=== PATIENT | female | born 1995 | race Two or more races ===

== ENCOUNTER 2020-04-28 03:14 | Emergency (ER) | payer SELFPAY ==
[~2020-04-28] VITALS: Ht 162.6 cm; Wt 57.8 kg
[2020-04-28 03:41] LABS: BILIRUBIN,URINE NEGATIVE (NEG); CLARITY,URINE CLEAR; COLOR,URINE YELLOW; NITRITE,URINE NEGATIVE (NEG); PH,URINE 6.5 (<5.0-8.0); PROTEIN,URINE NEGATIVE (NEG-TRACE)
[2020-04-28 03:48] LABS: BACTERIA,URINE FEW /HPF (0-FEW); RBC,URINE RARE /HPF (0-2)
[2020-04-28 04:08] LABS: BASO % 1 % (0-3); EOS # 0.1 x10^3/uL (0.0-0.7); EOS % 2 % (0-3); HEMATOCRIT 38.7 % (36.0-47.0); HEMOGLOBIN 13.5 g/dL (12.0-15.5); LYMPH # 2.1 x10^3/uL (1.0-4.8); LYMPH % 28 % (24-48); MEAN CORPUSCULAR HEMOGLOBIN 30 pg (25-35); MEAN CORPUSCULAR HGB CONC 35 g/dL (31-37); MEAN CORPUSCULAR VOLUME 86 fL (79-100); MONO # 0.6 x10^3/uL (0.0-1.1); MONO % 8 % (0-9); NEUT # 4.8 x10^3/uL (1.8-7.7); NEUT % 63 % (31-73); PLATELET COUNT 171 x10^3/uL (140-400); RED BLOOD COUNT 4.52 x10^6/uL (3.50-5.40); RED CELL DISTRIBUTION WIDTH 12.9 % (11.5-14.5); WHITE BLOOD COUNT 7.7 x10^3/uL (4.0-11.0)
[2020-04-28] MEDS: cefTRIAXone IV Push 1 GM VIAL. IVP ONE (04:16)
[2020-04-28 04:17] LABS: CALCIUM 8.9 mg/dL (8.5-10.1); CREATININE 0.7 mg/dL (0.6-1.0); POTASSIUM 3.4 mmol/L (3.5-5.1)
[2020-04-28 04:22] LABS: ALBUMIN 3.6 g/dL (3.4-5.0); ALBUMIN/GLOBULIN RATIO 1.1 (1.0-1.7); TOTAL BILIRUBIN 0.5 mg/dL (0.2-1.0); TOTAL PROTEIN 6.9 g/dL (6.4-8.2)
--- NOTE | 2020-04-28 05:04 | PHYS DOC ---
Past Medical History Past Medical History: No Pertinent History (ANDREA OTERO DO) Past Surgical History: No Surgical History (ANDREA OTERO DO) Smoking Status: Never Smoker Alcohol Use: None (ANDREA OTERO DO) General Adult EDM: Chief Complaint: ABDOMINAL PAIN IN HPI: HPI: Patient is a 24 year old female who presented to ER for evaluation of epigastric abdominal pain that radiated to her back started about 8 hours ago. Patient says she is ABOUT 2- 3 weeks . This is her second , denies any pelvic pain, no vaginal bleeding or discharge. Patient denies any cough or fever. Patient denies any chest pain, no trouble breathing. Patient denies being exposed to anybody who tested positive for COVID-19. Patient denies any lower abdominal pain. Patient denies any pain with urination, denies any frequency with urination (ANDREA OTERO DO) Review of Systems: Review of Systems: Constitutional: Denies fever or chills. [] Eyes: Denies change in visual acuity. [] HENT: Denies nasal congestion or sore throat. [] Respiratory: Denies cough or shortness of breath. [] Cardiovascular: Denies chest pain or edema. [] GI: Positive for abdominal pain, no nausea vomiting, no diarrhea. : Denies dysuria. [] Musculoskeletal: Denies back pain or joint pain. [] Integument: Denies rash. [] Neurologic: Denies headache, focal weakness or sensory changes. [] Endocrine: Denies polyuria or polydipsia. [] Lymphatic: Denies swollen glands. [] Psychiatric: Denies depression or anxiety. [] (ANDREA OTERO DO) Heart Score: Risk Factors: Risk Factors: DM, Current or recent (<one month) smoker, HTN, HLP, family history of CAD, obesity. Risk Scores: Score 0 - 3: 2.5% MACE over next 6 weeks - Discharge Home Score 4 - 6: 20.3% MACE over next 6 weeks - Admit for Clinical Observation Score 7 - 10: 72.7% MACE over next 6 weeks - Early Invasive Strategies (ANDREA OTERO DO) Current Medications: Current Medications Medications (Trade) Dose Ordered Sig/Cristi Start Time Stop Time Status Last Admin Dose Admin Ceftriaxone Sodium (Rocephin) 1 gm 1X ONCE 04/28/20 04:15 04/28/20 04:16 UNV 04/28/20 04:16 1 GM Famotidine (Pepcid Vial) 20 mg 1X ONCE 04/28/20 05:00 04/28/20 05:01 UNV (ANDREA OTERO DO) Physical Exam: PE: Constitutional: Well developed, well nourished, no acute distress, non-toxic appearance. [] HENT: Normocephalic, atraumatic, bilateral external ears normal, oropharynx moist, no oral exudates, nose normal. [] Eyes: PERRLA, EOMI, conjunctiva normal, no discharge. [] Neck: Normal range of motion, no tenderness, supple, no stridor. [] Cardiovascular:Heart rate regular rhythm, no murmur [] Lungs & Thorax: Bilateral breath sounds clear to auscultation [] Abdomen: Bowel sounds normal, soft, There is tenderness to palpation in RUQ, EPIGASTRIC AREA, no masses, no pulsatile masses. [] Skin: Warm, dry, no erythema, no rash. [] Back: No tenderness, no CVA tenderness. [] Extremities: No tenderness, no cyanosis, no clubbing, ROM intact, no edema. [] Neurologic: Alert and oriented X 3, normal motor function, normal sensory function, no focal deficits noted. [] Psychologic: Affect normal, judgement normal, mood normal. [] (ANDREA OTERO DO) Current Patient Data: Labs: Laboratory Tests Test 04/28/20 03:25 04/28/20 03:29 04/28/20 04:00 Urine Collection Type Unknown Urine Color Yellow Urine Clarity Clear Urine pH 6.5 (<5.0-8.0) Urine Specific [place] <=1.005 (1.000-1.030) Urine Protein Negative mg/dL (NEG-TRACE) Urine Glucose (UA) Negative mg/dL (NEG) Urine Ketones (Stick) Negative mg/dL (NEG) Urine Blood Negative (NEG) Urine Nitrite Negative (NEG) Urine Bilirubin Negative (NEG) Urine Urobilinogen Dipstick 1.0 mg/dL (0.2 mg/dL) Urine Leukocyte Esterase Moderate (NEG) Urine RBC Rare /HPF (0-2) Urine WBC 11-20 /HPF (0-4) Urine Squamous Epithelial Cells Mod /LPF Urine Bacteria Few /HPF (0-FEW) POC Urine HCG, Qualitative Hcg positive (Negative) White Blood Count 7.7 x10^3/uL (4.0-11.0) Red Blood Count 4.52 x10^6/uL (3.50-5.40) Hemoglobin 13.5 g/dL (12.0-15.5) Hematocrit 38.7 % (36.0-47.0) Mean Corpuscular Volume 86 fL (79-100) Mean Corpuscular Hemoglobin 30 pg (25-35) Mean Corpuscular Hemoglobin Concent 35 g/dL (31-37) Red Cell Distribution Width 12.9 % (11.5-14.5) Platelet Count 171 x10^3/uL (140-400) Neutrophils (%) (Auto) 63 % (31-73) Lymphocytes (%) (Auto) 28 % (24-48) Monocytes (%) (Auto) 8 % (0-9) Eosinophils (%) (Auto) 2 % (0-3) Basophils (%) (Auto) 1 % (0-3) Neutrophils # (Auto) 4.8 x10^3/uL (1.8-7.7) Lymphocytes # (Auto) 2.1 x10^3/uL (1.0-4.8) Monocytes # (Auto) 0.6 x10^3/uL (0.0-1.1) Eosinophils # (Auto) 0.1 x10^3/uL (0.0-0.7) Basophils # (Auto) 0.0 x10^3/uL (0.0-0.2) Maternal Serum HCG Beta Subunit 840 mIU/mL (0-5) H Sodium Level 140 mmol/L (136-145) Potassium Level 3.4 mmol/L (3.5-5.1) L Chloride Level 106 mmol/L (98-107) Carbon Dioxide Level 24 mmol/L (21-32) Anion Gap 10 (6-14) Blood Urea Nitrogen 10 mg/dL (7-20) Creatinine 0.7 mg/dL (0.6-1.0) Estimated GFR (Cockcroft-Gault) 102.0 BUN/Creatinine Ratio 14 (6-20) Glucose Level 107 mg/dL (70-99) H Calcium Level 8.9 mg/dL (8.5-10.1) Total Bilirubin 0.5 mg/dL (0.2-1.0) Aspartate Amino Transferase (AST) 19 U/L (15-37) Alanine Aminotransferase (ALT) 26 U/L (14-59) Alkaline Phosphatase 59 U/L (46-116) Total Protein 6.9 g/dL (6.4-8.2) Albumin 3.6 g/dL (3.4-5.0) Albumin/Globulin Ratio 1.1 (1.0-1.7) Laboratory Tests 04/28/20 04:00 Laboratory Tests 04/28/20 04:00 Vital Signs: Vital Signs Date Time Temp Pulse Resp B/P (MAP) Pulse Ox O2 Delivery O2 Flow Rate FiO2 04/28/20 03:45 98.2 76 20 112/63 (79) 99 Room Air 98.2 (ANDREA OTERO DO) EKG: EKG: [] (ANDREA OTERO DO) Radiology/Procedures: Radiology/Procedures: [] (ANDREA OTERO DO) Radiology/Procedures: Right upper quadrant ultrasound dated 04/28/2020. No comparison available. CLINICAL INDICATION: Abdominal pain. FINDINGS: Liver is homogeneous in echogenicity. No focal hepatic mass. Intrahepatic and extra hepatic biliary tree normal in caliber. Common bile duct measures 5 mm. There is some echogenic material in the gallbladder lumen consistent with sludge. No wall thickening or pericholecystic fluid. No shadowing stones. Right kidney measures 9 cm in length without hydronephrosis. Left kidney was not imaged. Limited visualized portions of pancreas aorta and IVC unremarkable. No significant ascites. IMPRESSION: 1. No acute sonographic abnormality. 2. Sludge-filled gallbladder. First trimester OB ultrasound dated 04/28/2020. No comparison available. CLINICAL INDICATION: Abdominal pain. FINDINGS: Uterus measures 9.3 x 6.4 x 5.5 cm and is retroverted. No gestational sac or pole within the endometrial canal. Endometrium appears somewhat thickened and measuring up to 2.3 cm. Right ovary measures 3.7 x 3.2 x 3.1 cm. Left ovary measures 2.0 x 1.7 x 1.4 cm. There is a simple appearing cyst at the right ovary measuring up to 2.8 cm. Normal color Doppler flow to both ovaries. Small amount of free fluid. IMPRESSION: 1. No evidence of gestational sac or pole at this time. This could be related to very early IUP or demise. Correlate clinically. 2. Small amount of free fluid, nonspecific. No apparent adnexal mass. 3. Small right ovarian cyst. (ARTHUR PERKINS MD) Course & Med Decision Making: Course & Med Decision Making Pertinent Labs and Imaging studies reviewed. (See chart for details) Patient is a 24-year-old female who is , presented with epigastric abdominal pain, no pelvic pain, no vaginal bleeding. Ultrasound of her abdomen and pelvis pending at this time, endorsed care to Dr. Perkins at shift change. (ANDREA OTERO DO) Course & Med Decision Making Accepted care of patient at shift change, she was pending ultrasound imaging. Patient states her stomach pain is feeling better after the famotidine. Discussed with patient via interpretation line that we will treat her urinary tract infection as well as gastritis, educated her about what foods to avoid. (ARTHUR PERKINS MD) Dragon Disclaimer: Dragon Disclaimer: This electronic medical record was generated, in whole or in part, using a voice recognition dictation system. (ANDREA OTERO DO) Departure Departure Impression: Primary Impression: Abdominal pain during Additional Impression: Urinary tract infection Disposition: 01 DC HOME SELF CARE/HOMELESS Condition: STABLE Referrals: NO PCP (PCP) Patient Instructions: Diet for Gastroesophageal Reflux Disease, Adult, [id number] Scripts Famotidine (FAMOTIDINE) 20 Mg Tablet 20 MG PO HS for gastritis for 10 Days, #10 TAB Prov: ARTHUR PERKINS MD 04/28/20 Cephalexin (CEPHALEXIN) 500 Mg Capsule 1 CAP PO BID for antibiotico for 5 Days, #10 CAP Prov: ARTHUR PERKINS MD 04/28/20 ANDREA OTERO DO Apr 28, 2020 05:03 ARTHUR PERKINS MD Apr 28, 2020 06:50
[2020-04-28] MEDS: FAMOTIDINE 20 MG/2 ML VIAL IVP ONE (05:13)
--- NOTE | 2020-04-28 06:13 | RAD ---
Right upper quadrant ultrasound dated 04/28/2020. No comparison available. CLINICAL INDICATION: Abdominal pain. FINDINGS: Liver is homogeneous in echogenicity. No focal hepatic mass. Intrahepatic and extra hepatic biliary t ree normal in caliber. Common bile duct measures 5 mm. There is some echogenic material in the gallbladder lumen consistent with sludge. No wall thickening or pericholecystic fluid. No shadowing stones. Right kidney measures 9 cm in length without hydronephrosis. Left kidney was not imaged. Limited visualized portions of pancreas aorta and IVC unremarkable. No significant ascites. IMPRESSION: 1. No acute sonographic abnormality. 2. Sludge-filled gallbladder. Electronically signed by: Henry Sun MD (04/28/2020 6:11 AM) [facility]
--- NOTE | 2020-04-28 06:19 | RAD ---
First trimester OB ultrasound dated 04/28/2020. No comparison available. CLINICAL INDICATION: Abdominal pain. FINDINGS: Uterus measures 9.3 x 6.4 x 5.5 cm and is retroverted. No gestational sac or pole within the en dometrial canal. Endometrium appears somewhat thickened and measuring up to 2.3 cm. Right ovary measures 3.7 x 3.2 x 3.1 cm. Left ovary measures 2.0 x 1.7 x 1.4 cm. There is a simple ap pearing cyst at the right ovary measuring up to 2.8 cm. Normal color Doppler flow to both ovaries. Sm all amount of free fluid. IMPRESSION: 1. No evidence of gestational sac or pole at this time. This could be related to very early IUP or demise. Correlate clinically. 2. Small amount of free fluid, nonspecific. No apparent adnexal mass. 3. Small right ovarian cyst. Electronically signed by: Henry Snu MD (04/28/2020 6:17 AM) [facility]
[2020-04-28 06:43] VITALS: BP 110/65
[2020-04-28] MEDS ORDERED: CEPH500C PO (06:49)
[2020-04-28] MEDS ORDERED: FAMO20TA5 PO (06:49)
== END 2020-04-28 07:00 | disposition home or self-care (01) ==
LOC: ER 03:14
DX: O23.41 Unspecified infection of urinary tract in pregnancy, first trimester (principal); R10.13 Epigastric pain; Z3A.01 Less than 8 weeks gestation of pregnancy
CPT/HCPCS: 36415; 76705; 76801; 80053; 81001; 81025; 83690; 84702; 85025; 86900; 86901; 87086; 96374; 96375; 99285; J0696; J3490

== ENCOUNTER 2020-06-03 15:34 | Emergency (ER) | payer SELFPAY ==
[~2020-06-03] VITALS: Ht 152.4 cm; Wt 56.8 kg
[~2020-06-03 15:34] MED LIST: CEPH500C PO; FAMO20TA5 PO
[2020-06-03 16:35] LABS: BILIRUBIN,URINE NEGATIVE (NEG); CLARITY,URINE CLEAR; COLOR,URINE YELLOW; NITRITE,URINE NEGATIVE (NEG); PROTEIN,URINE NEGATIVE (NEG-TRACE); UROBILINOGEN,URINE 0.2 mg/dL (0.2 mg/dL)
[2020-06-03 16:40] LABS: BACTERIA,URINE FEW /HPF (0-FEW)
[2020-06-03 16:41] LABS: RBC,URINE 0 /HPF (0-2)
[2020-06-03 16:57] LABS: BASO % 0 % (0-3); EOS # 0.1 x10^3/uL (0.0-0.7); EOS % 1 % (0-3); HEMATOCRIT 40.7 % (36.0-47.0); HEMOGLOBIN 13.9 g/dL (12.0-15.5); LYMPH # 2.1 x10^3/uL (1.0-4.8); LYMPH % 23 % (24-48); MEAN CORPUSCULAR HEMOGLOBIN 30 pg (25-35); MEAN CORPUSCULAR HGB CONC 34 g/dL (31-37); MEAN CORPUSCULAR VOLUME 86 fL (79-100); MONO # 0.5 x10^3/uL (0.0-1.1); MONO % 5 % (0-9); NEUT # 6.4 x10^3/uL (1.8-7.7); NEUT % 71 % (31-73); PLATELET COUNT 177 x10^3/uL (140-400); RED BLOOD COUNT 4.73 x10^6/uL (3.50-5.40); RED CELL DISTRIBUTION WIDTH 12.6 % (11.5-14.5); WHITE BLOOD COUNT 9.1 x10^3/uL (4.0-11.0)
[2020-06-03 17:03] LABS: CALCIUM 9.1 mg/dL (8.5-10.1); CREATININE 0.6 mg/dL (0.6-1.0); GFR 121.8; POTASSIUM 3.7 mmol/L (3.5-5.1)
[2020-06-03 17:09] LABS: ALBUMIN 3.7 g/dL (3.4-5.0); ALBUMIN/GLOBULIN RATIO 1.2 (1.0-1.7); TOTAL BILIRUBIN 0.5 mg/dL (0.2-1.0); TOTAL PROTEIN 6.8 g/dL (6.4-8.2)
--- NOTE | 2020-06-03 17:33 | PHYS DOC ---
Past Medical History Past Medical History: No Pertinent History Past Surgical History: No Surgical History Smoking Status: Never Smoker Alcohol Use: None General Adult EDM: Chief Complaint: VAGINAL BLEEDING HPI: HPI: Patient is a 24 year old female 2 para 1 currently 10 weeks last menstrual cycle March 17, 2020 who presents to the ED today complaining of vaginal bleeding and abdominal cramping that began yesterday. Patient states yesterday she went to a local clinic for an ultrasound and was told she has demise. She states they informed her if she starts bleeding to come to the ED. She started bleeding last night and came in today. Patient reports small amount of bleeding. Patient is [place]inean-speaking and interpretation is provided by one of the registration employees who speaks [place]an and Romansh Review of Systems: Review of Systems: Constitutional: Denies fever or chills. [] Eyes: Denies change in visual acuity. [] HENT: Denies nasal congestion or sore throat. [] Respiratory: Denies cough or shortness of breath. [] Cardiovascular: Denies chest pain or edema. [] GI: Reports abdominal pain and vaginal bleeding in , nausea, vomiting, bloody stools or diarrhea. [] : Denies dysuria. [] Musculoskeletal: Denies back pain or joint pain. [] Integument: Denies rash. [] Neurologic: Denies headache, focal weakness or sensory changes. [] Psychiatric: Denies depression or anxiety. [] Heart Score: Risk Factors: Risk Factors: DM, Current or recent (<one month) smoker, HTN, HLP, family history of CAD, obesity. Risk Scores: Score 0 - 3: 2.5% MACE over next 6 weeks - Discharge Home Score 4 - 6: 20.3% MACE over next 6 weeks - Admit for Clinical Observation Score 7 - 10: 72.7% MACE over next 6 weeks - Early Invasive Strategies Allergies: Allergies: Allergies Coded Allergies Type Severity Reaction Last Updated Verified No Known Drug Allergies 04/28/20 No Physical Exam: PE: Constitutional: Well developed, well nourished, no acute distress, non-toxic appearance. [] HENT: Normocephalic, atraumatic, bilateral external ears normal, oropharynx moist, no oral exudates, nose normal. [] Eyes: PERRLA, EOMI, conjunctiva normal, no discharge. [] Neck: Normal range of motion, no tenderness, supple, no stridor. [] Cardiovascular:Heart rate regular rhythm, no murmur [] Lungs & Thorax: Bilateral breath sounds clear to auscultation [] Abdomen: Bowel sounds normal, soft, no tenderness, no masses, no pulsatile masses. [] Pelvic exam External pelvic appears normal, cervix is visualized, trace amount of brownish discharge in the vaginal vault, no active bleeding, no CMT, no adnexal tenderness Skin: Warm, dry, no erythema, no rash. [] Back: No tenderness, no CVA tenderness. [] Extremities: No tenderness, no cyanosis, no clubbing, ROM intact, no edema. [] Neurologic: Alert and oriented X 3, normal motor function, normal sensory function, no focal deficits noted. [] Psychologic: Affect normal, judgement normal, mood normal. [] Current Patient Data: Labs: Laboratory Tests Test 06/03/20 15:48 06/03/20 15:50 06/03/20 16:45 Urine Collection Type Unknown Urine Color Yellow Urine Clarity Clear Urine pH 6.0 (<5.0-8.0) Urine Specific [place] <=1.005 (1.000-1.030) Urine Protein Negative mg/dL (NEG-TRACE) Urine Glucose (UA) Negative mg/dL (NEG) Urine Ketones (Stick) Negative mg/dL (NEG) Urine Blood Small (NEG) Urine Nitrite Negative (NEG) Urine Bilirubin Negative (NEG) Urine Urobilinogen Dipstick 0.2 mg/dL (0.2 mg/dL) Urine Leukocyte Esterase Small (NEG) Urine RBC 0 /HPF (0-2) Urine WBC 5-10 /HPF (0-4) Urine Squamous Epithelial Cells Few /LPF Urine Bacteria Few /HPF (0-FEW) Urine Mucus Slight /LPF POC Urine HCG, Qualitative Hcg positive (Negative) White Blood Count 9.1 x10^3/uL (4.0-11.0) Red Blood Count 4.73 x10^6/uL (3.50-5.40) Hemoglobin 13.9 g/dL (12.0-15.5) Hematocrit 40.7 % (36.0-47.0) Mean Corpuscular Volume 86 fL (79-100) Mean Corpuscular Hemoglobin 30 pg (25-35) Mean Corpuscular Hemoglobin Concent 34 g/dL (31-37) Red Cell Distribution Width 12.6 % (11.5-14.5) Platelet Count 177 x10^3/uL (140-400) Neutrophils (%) (Auto) 71 % (31-73) Lymphocytes (%) (Auto) 23 % (24-48) L Monocytes (%) (Auto) 5 % (0-9) Eosinophils (%) (Auto) 1 % (0-3) Basophils (%) (Auto) 0 % (0-3) Neutrophils # (Auto) 6.4 x10^3/uL (1.8-7.7) Lymphocytes # (Auto) 2.1 x10^3/uL (1.0-4.8) Monocytes # (Auto) 0.5 x10^3/uL (0.0-1.1) Eosinophils # (Auto) 0.1 x10^3/uL (0.0-0.7) Basophils # (Auto) 0.0 x10^3/uL (0.0-0.2) Sodium Level 140 mmol/L (136-145) Potassium Level 3.7 mmol/L (3.5-5.1) Chloride Level 106 mmol/L (98-107) Carbon Dioxide Level 23 mmol/L (21-32) Anion Gap 11 (6-14) Blood Urea Nitrogen 7 mg/dL (7-20) Creatinine 0.6 mg/dL (0.6-1.0) Estimated GFR (Cockcroft-Gault) 121.8 BUN/Creatinine Ratio 12 (6-20) Glucose Level 79 mg/dL (70-99) Calcium Level 9.1 mg/dL (8.5-10.1) Total Bilirubin 0.5 mg/dL (0.2-1.0) Aspartate Amino Transferase (AST) 22 U/L (15-37) Alanine Aminotransferase (ALT) 37 U/L (14-59) Alkaline Phosphatase 48 U/L (46-116) Total Protein 6.8 g/dL (6.4-8.2) Albumin 3.7 g/dL (3.4-5.0) Albumin/Globulin Ratio 1.2 (1.0-1.7) Laboratory Tests 06/03/20 16:45 Laboratory Tests 06/03/20 16:45 Vital Signs: Vital Signs Date Time Temp Pulse Resp B/P (MAP) Pulse Ox O2 Delivery O2 Flow Rate FiO2 06/03/20 16:14 98.4 82 16 122/75 (91) 99 Room Air 98.4 EKG: EKG: [] Radiology/Procedures: Radiology/Procedures: []PROCEDURE: OB <14 WKS W/TV Transvaginal OB ultrasound HISTORY: with bleeding told the clinic yesterday that there was demise Transvaginal sonographic examination appearance was performed and multiple static images were obtained. There is a gestational sac. There is a yolk sac. There is a thin-walled fluid collection and there is an echogenic adjacent nodule. There is no definite pole and there is no detectable heart tones. The ovaries appear normal normal blood flow. The right ovary measures 4.9 x 1 2.0 x 2.8 cm and has 2 follicles. The left ovary measures 2.8 x 1.8 x 3.0 cm. IMPRESSION: Abnormal findings in the uterus could be secondary to demise however an early is possible. Recommend correlation with serial quantitative beta-hCG. If the beta hCG fails to fall precipitously a short-term follow-up ultrasound is recommended in order to document a viable intrauterine . Electronically signed by: Julio Coffey III, MD (06/03/2020 5:31 PM) [facility] DICTATED and SIGNED BY: JULIO COFFEY III, MD DATE: 06/03/20 [id number] 0 Course & Med Decision Making: Course & Med Decision Making Pertinent Labs and Imaging studies reviewed. (See chart for details) This is a 24-year-old female patient 2 para 1 currently 10 weeks presented to the ED today with vaginal bleeding in abdominal cramping in that began yesterday. Patient states she went to an outpatient clinic yesterday and was told she has demise, she states they told her if she starts bleeding to come to the ED. She started bleeding last night. On physical exam she had trace amount of brownish discharge in the vaginal vault. Patient was seen in the ED on April 16, 2020, her beta-hCG was 840, no IUP was found at that point Beta-hCG 23,505, CBC, CMP with no acute findings Urine positive for UTI, discharged on cephalexin Blood group O+ OB ultrasound noted for abnormal findings in the uterus could be secondary to demise however an early is possible. Recommend correlation with serial quantitative beta-hCG. If the beta hCG fails to fall precipitously a short-term follow-up ultrasound is recommended in order to document a viable intrauterine . Spoke with Dr. Oakes he stated this is likely a failed and patient should be able to pass it on her own. Requested we send patient home with return precautions in case she starts soaking more than 2 feminine pads an hour. She stated patient should follow-up with the clinic she went to ([facility]) tomorrow. Pharmaceutical Engineer line was used for [place]an at discharge by me Storm Disclaimer: Emeterio Disclaimer: This electronic medical record was generated, in whole or in part, using a voice recognition dictation system. Departure Departure Impression: Primary Impression: UTI (urinary tract infection) Qualified Codes: N39.0 - Urinary tract infection, site not specified Additional Impression: Incomplete miscarriage Disposition: 01 DC HOME SELF CARE/HOMELESS Condition: STABLE Referrals: ISMAEL RIOS (PCP) [facility] Call them for an appointment Patient Instructions: Incomplete Miscarriage, Urinary Tract Infection Additional Instructions: You were evaluated in the emergency room, you are having a failed which will result into vaginal bleeding and cramping as the products of conception pass. Expect some mild to heavy bleeding. Please return to the ED if you feel more than 2 feminine pads an hour. Come back to the ED at any point you have uncontrolled pain. Follow-up with [facility] tomorrow. Call them for an appointment. Scripts Cephalexin (CEPHALEXIN) 500 Mg Tablet 1 TAB PO BID, #14 TAB Prov: RAJAN TURNER APRN 06/03/20 RAJAN TURNER APRN Jun 03, 2020 17:33
--- NOTE | 2020-06-03 17:33 | RAD ---
Transvaginal OB ultrasound HISTORY: with bleeding told the clinic yesterday that there was demise Transvaginal sonographic examination appearance was performed and multiple static images were obtaine d. There is a gestational sac. There is a yolk sac. There is a thin-walled fluid collection and there is an echogenic adjacent nodule. There is no definite pole and there is no detectable heart tones. The ovaries appear normal normal blood flow. The right ovary measures 4.9 x 1 2.0 x 2.8 cm and has 2 follicles. The left ovary measures 2.8 x 1.8 x 3.0 cm. IMPRESSION: Abnormal findings in the uterus could be secondary to demise however an early is poss ible. Recommend correlation with serial quantitative beta-hCG. If the beta hCG fails to fall precipit ously a short-term follow-up ultrasound is recommended in order to document a viable intrauterine pre gnancy. Electronically signed by: Dre Contreras III, MD (06/03/2020 5:31 PM) [facility]
[2020-06-03 18:04] VITALS: BP 103/66
[2020-06-03] MEDS ORDERED: CEPH500T PO (18:34)
== END 2020-06-03 18:47 | disposition home or self-care (01) ==
LOC: ER 15:34
DX: O03.4 Incomplete spontaneous abortion without complication (principal); O23.41 Unspecified infection of urinary tract in pregnancy, first trimester; Z3A.10 10 weeks gestation of pregnancy
CPT/HCPCS: 36415; 76801; 76817; 80053; 81001; 81025; 84702; 85025; 87086; 99284